=== PATIENT | male | born 1970 | race Caucasian/White ===

== ENCOUNTER 2023-07-23 20:02 | Emergency (ER) | payer OTHER, SELFPAY ==
[2023-07-23 20:03] VITALS: BP 139/86; PULSE 70; RESP 18; TEMP 36.8; O2SAT 98; BMI 36.1
[2023-07-23] MEDS: Cephalexin 250 MG Capsule 500 MG PO (22:23)
[2023-07-23 22:25] VITALS: PULSE 87; RESP 17; O2SAT 97
--- NOTE | 2023-07-23 23:04 | EDS_ITS ---
HPI History of Present Illness Chief Complaint: Wound Narrative Narrative: 52-year-old male presenting with a wound on the right distal tibia. Patient states he was wearing new boots and has had an abrasion here. Is been there for about a week. Has been cleaning it and keeping it dry but he notes that he looks infected there is more swelling and edema as well as worsening pain. No systemic signs or symptoms. PFSH PFSH Home Medications cephalexin 500 mg capsule 500 mg PO Q6H 7 days #28 CAPSULES 07/23/23 [Rx Last Taken Unknown] Allergy/AdvReac Type Severity Reaction Status Date / Time No Known Allergies Allergy Verified 07/23/23 20:05 Social History Smoking Status: Never smoker alcohol intake: current alcohol intake frequency: other details: rare ROS ROS ED Constitutional Constitutional ED: Denies chills, fever(s) or sweats Eyes Eyes: Denies blurry vision or change in vision ENT ENT ED: Denies ear pain or sore throat Cardiovascular Cardiovascular: Denies chest pain, palpitations or racing heartbeat Respiratory/Chest Respiratory/Chest: Denies cough, dyspnea or sputum Gastrointestinal Gastrointestinal: Denies abdominal pain, constipation, diarrhea, nausea or vomiting Genitourinary Genitourinary ED: Denies dysuria, hematuria or urinary frequency Musculoskeletal Musculoskeletal: Denies arthralgias, myalgias or neck pain Integumentary Reports other Details: Area of cellulitis on left tibia. ; Denies abscess, Abrasions or rash Neurologic Neurologic: Denies headache(s), paresthesias or weakness Psychiatric Psychiatric: Denies anxiety, depression, suicidal ideation or suicidal thoughts Endocrine Endocrinology: Denies polydipsia or polyuria EXAM Physical Exam Const Vital Signs: 07/23/23 20:03 07/23/23 22:25 Temperature 98.3 F Temperature Source Temporal Pulse Rate 70 87 Respiratory Rate 18 17 Blood Pressure 139/86 H Blood Pressure Mean 103 Pulse Ox 98 97 Oxygen Delivery Method Room Air Positive well nourished HEENT Reports moist mucous membranes Eyes PERRL Resp normal respiratory effort Cardio regular rate and regular rhythm Extremity Extremity Narrative: Noted on right medial tibial region. There is a small white eschar centrally with surrounding erythema and induration. No drainage. Tender to palpation. No crepitance. Neuro oriented x3 Sensorium / Orientation: alert Motor Exam: strength 5/5 throughout Psych mental status grossly normal Skin Skin Narrative: As described above MDM MDM MDM Narrative Medical decision making narrative: Patient symptoms consistent with an early cellulitis. Patient has no history of MRSA. No systemic signs or symptoms. I do not believe needs any lab work. I will start him on Keflex with first dose in the ED. He is counseled on wound ca re. Return precautions were discussed. Impression: 1. Cellulitis Discharge Plan Triage Chief Complaint: Wound ED Provider: Abilio Renner Dx/Rx/DC Orders Instructions: ED Cellulitis Prescriptions: New cephalexin 500 mg capsule 500 mg PO Q6H 7 Days Qty: 28 0RF Primary Care Provider: Care Physician,No Primary Referrals: Care Physician,No Primary [Primary Care Provider] - Disposition Disposition: Home, Self Care Discharge Date/Time: 07/23/23 22:26
== END 2023-07-23 22:26 | disposition home or self-care (01) ==
PROVIDERS: Emergency Provider Student in an Organized Health Care Education/Training Program; Visit Provider Student in an Organized Health Care Education/Training Program
DX: L03.115 Cellulitis of right lower limb (principal)
CPT/HCPCS: 99282